=== PATIENT | male | born 1985 | race Caucasian/White ===

== ENCOUNTER 2016-07-06 11:27 | Emergency (ER) | payer SELFPAY ==
[~2016-07-06] VITALS: Ht 188 cm; Wt 86.4 kg
[2016-07-06 11:31] VITALS: BP 142/77; PULSE 90; RESP 20; TEMP 97.6; O2SAT 97
--- NOTE | 2016-07-06 12:13 | PD ---
HPI Chief Complaint: Cold / Flu Symptoms Time Seen by Provider: 12:12 Travel History International Travel<30 days: No Contact w/Intl Traveler<30days: No Traveled to known affect area: No History of Present Illness HPI 31-year-old male presents to the emergency department with complaint of cough, wheezing, shortness breath, chest tightness, nasal congestion, sputum production 1/2 weeks. History of asthma. He had pneumonia 7 times last year. Does not have an albuterol inhaler and has not been using anything to alleviate his symptoms. Reports shortness of breath and chest tightness. Denies chest pain. Denies hemoptysis. 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 Denies recent travel, hospitalization, surgery. Denies leg edema. Denies anticoagulants. Next fever, chills, nausea, vomiting. Denies sore throat, ear pain. Smokes 2 packs per day. Allergies to garlic, nickel, oily fish. No primary care provider. No other modifying factors or associated signs and symptoms. PFSH Past Medical History Asthma: Yes Social History Alcohol Use: No Tobacco Use: Yes (2ppd) Substance Use: Yes (marijuana) Allergies-Medications (Allergen,Severity, Reaction): Coded Allergies: Garlic (Verified Allergy, Unknown, 02/04/16) Oily Fish (Verified Allergy, Unknown, 02/04/16) Uncoded Allergies: NICKEL (Adverse Reaction, Intermediate, 02/04/16) Reported Meds & Prescriptions Reported Meds & Active Scripts Active Azithromycin 500 Mg Tab 500 Mg PO DAILY Deltasone (Prednisone) 20 Mg Tab 40 Mg PO DAILY 4 Days start 07/07/2016 Proair Hfa 8.5 GM Inh (Albuterol Sulfate) 90 Mcg/Act Aer 2 Puff INH Q4-6H PRN 108 mcg/actuation Review of Systems Except as stated in HPI: all other systems reviewed are Neg Physical Exam Narrative GENERAL: Well-nourished, well-developed male patient, in no acute distress SKIN: Warm and dry. HEAD: Atraumatic. Normocephalic. EYES: Pupils equal and round at 4 mm with brisk reaction. No scleral icterus. No injection or drainage. ENT: Mucosa pink and moist. No erythema or exudates. No uvular edema. No uvular , palatal, or tonsillar deviation. Airway patent. Nares without nasal blood, purulent drainage or septal hematoma. EARS: Bilateral pinnae and external canals appear within normal limits. Bilateral tympanic membranes without erythema, dullness or perforation. NECK: Trachea midline. No lymphadenopathy. CARDIOVASCULAR: Regular rate and rhythm. No murmur appreciated. RESPIRATORY: No accessory muscle use. Lungs decreased to bilateral bases to auscultation. Breath sounds equal bilaterally. No retractions or tachypnea. No Audible wheezing noted. GASTROINTESTINAL: Abdomen soft, non-tender, nondistended. Hepatic and splenic margins not palpable. Bowel sounds are active 4 quadrants. MUSCULOSKELETAL: No obvious deformities. No clubbing. No cyanosis. No edema. NEUROLOGICAL: Awake and alert. Oriented 3. No obvious cranial nerve deficits. Motor grossly within normal limits. Normal speech. Moves all extremities. 5/5 strength to all extremities. PSYCHIATRIC: Appropriate mood and affect; insight and judgment normal. Data Data Last Documented VS Vital Signs Date Time Temp Pulse Resp B/P Pulse Ox O2 Delivery O2 Flow Rate FiO2 07/06/16 13:00 70 16 138/64 98 Room Air 07/06/16 11:31 97.6 Orders Chest, Single Ap (07/06/16 12:13) Prednisone (Deltasone) (07/06/16 12:15) Albuterol-Ipratropium Neb (Duoneb Neb) (07/06/16 12:15) Albuterol-Ipratropium Neb (Duoneb Neb) (07/06/16 12:15) Albuterol-Ipratropium Neb (Duoneb Neb) (07/06/16 13:00) Ibuprofen (Motrin) (07/06/16 13:15) MDM Medical Decision Making Medical Screen Exam Complete: Yes Emergency Medical Condition: Yes Medical Record Reviewed: Yes Differential Diagnosis Viral illness, asthma exacerbation, pneumonia, less likely PE Narrative Course 31-year-old male physical exam consistent with a viral illness and mild asthma exacerbation. The patient is in no acute distress and oxygen saturation is 97% on room air. He is without retractions or tachypnea. Lung sounds are decreased in bilateral bases and without wheezing on auscultation. No audible wheezing. Patient is afebrile and nontoxic-appearing. He denies fever, chills , nausea, vomiting. Reports 2 pack per day cigarette use. He does report history of DVT secondary to surgery. His last DVT was reported in 2005. Using Wells criteria for pulmonary embolism the patient's scores 1.5 points, which is Low risk group: 1.3% chance of PE in an ED population. Another study assigned scores = 4 as PE Unlikely and had a 3% incidence of PE. I do not feel that further evaluation for PE is necessary at this time. Chest x-ray ordered. DuoNeb and prednisone is ordered. 1300: Patient reports some improvement in shortness of breath after DuoNeb 1. Lungs are clear and equal with improved breath sounds but still mildly decreased in bilateral bases. DuoNeb 2 ordered. 1325: Chest x-ray with no acute disease. 1339: Patient reports improvement in symptoms. He denies shortness of breath and chest tightness at this time. His lungs are clear and equal with improved breath sounds throughout. Pro Air inhaler, Deltasone prescribed for home. I will prescribe antibiotics secondary to length of illness. Azithromycin prescribed home. Patient verbalizes understanding and agreement with treatment plan. Patient is medically cleared and stable for discharge. Discussed reasons to return to the emergency department. Instructed patient to follow up with primary care provider. Patient agrees with treatment plan. The patients vital signs are stable and the patient is stable for outpatient follow-up and treatment. Patient discharged home, stable and in no acute distress. Diagnosis Primary Impression: Viral illness Additional Impression: Asthma exacerbation, mild Referrals: Primary Care Physician Patient Instructions: Asthma (ED), Cold Symptoms (ED), General Instructions, Safe Use of Cough and Cold Medicines (ED) Departure Forms: Tests/Procedures, Work Release Enter return to work date: Jul 07, 2016 Additional Instructions: Use Albuterol inhaler as prescribed Take oral steroids as prescribed and complete full course Use Tessalon Perles as prescribed to decrease coughing spasms [id number] decongestants or antihistamines as directed and as needed for symptom management Drink plenty of fluids to prevent dehydration Use hot air humidifier to decrease cough exacerbation Turn off ceiling fans and sleep with head of bed elevated Avoid triggers such as second hand smoke, dust, known allergens Follow-up with your primary care provider Return to the emergency department immediately with worsening of symptoms Med/Other Pt SpecificInfo: Prescription(s) given Scripts Azithromycin 500 Mg [id number] Mg PO DAILY #5 TAB Ref 0 Prov:Hortencia Mercer 07/06/16 Prednisone (Deltasone)20 Mg Tab40 Mg PO DAILY 4 Days Ref 0 start 07/07/2016 Prov:Hortencia Mercer 07/06/16 Albuterol 8.5 GM Inh (Proair Hfa 8.5 GM Inh)90 Mcg/Act Aer2 Puff INH Q4-6H PRN ( SOB/WHEEZING) #1 INHALER Ref 0 108 mcg/actuation Prov:Hortencia Mercer 07/06/16 Disposition: 01 DISCHARGE HOME Condition: Stable Hortencia Mercer Jul 06, 2016 12:13
[2016-07-06] MEDS ORDERED: predniSONE 20 MG TAB PO ONE (12:15)
[2016-07-06] MEDS ORDERED: RESP: ALBUTEROL 2.5 MG/IPRATROPIUM 0.5 MG NEB (SCH) INH ONE (12:15)
[2016-07-06] MEDS ORDERED: RESP: ALBUTEROL 2.5 MG/IPRATROPIUM 0.5 MG NEB (SCH) INH (12:15)
[2016-07-06 13:00] VITALS: BP 138/64; PULSE 70; RESP 16; O2SAT 98
--- NOTE | 2016-07-06 13:01 | RADRPT ---
EXAM DATE/TIME: 07/06/2016 12:38 [facility] COMPARISON: No previous studies available for comparison. INDICATIONS : History asthma, short of breath with wheezing. MEDICAL HISTORY : Asthma SURGICAL HISTORY : None. ENCOUNTER: Initial ACUITY: 1 day PAIN SCORE: 6/10 LOCATION: Bilateral chest FINDINGS: A single view of the chest demonstrates the lungs to be symmetrically aerated without evidence of mas s, infiltrate or effusion. The cardiomediastinal contours are unremarkable. Osseous structures are intact. CONCLUSION: No acute disease. Tato Sy MD on July 06, 2016 at 12:54 Board Certified Radiologist. This report was verified electronically.
[2016-07-06] MEDS: RESP: ALBUTEROL 2.5 MG/IPRATROPIUM 0.5 MG NEB (SCH) INH (13:08)
[2016-07-06] MEDS ORDERED: IBUPROFEN 800 MG TAB PO ONE (13:15)
[2016-07-06] MEDS ORDERED: AZIT500T2 PO (13:44)
[2016-07-06] MEDS ORDERED: ALBUAER3 INH (13:44)
[2016-07-06] MEDS ORDERED: PRED-503 PO (13:44)
== END 2016-07-06 14:04 | disposition home or self-care (01) ==
LOC: NEPE 11:27
DX: B34.9 Viral infection, unspecified (principal); J45.901 Unspecified asthma with (acute) exacerbation; R07.89 Other chest pain; R09.81 Nasal congestion; F17.200 Nicotine dependence, unspecified, uncomplicated; Z87.09 Personal history of other diseases of the respiratory system; Z87.01 Personal history of pneumonia (recurrent); Z86.718 Personal history of other venous thrombosis and embolism
CPT/HCPCS: 71010; 94640; 94664; 99284; J7512

== ENCOUNTER 2016-09-11 12:32 | Emergency (ER) | payer OTHER ==
[~2016-09-11] VITALS: Ht 188 cm; Wt 84.5 kg
[~2016-09-11 12:32] MED LIST: ALBUAER3 INH; AZIT500T2 PO; PRED-503 PO
[2016-09-11 12:45] VITALS: BP 119/69; PULSE 94; RESP 18; TEMP 99.2; O2SAT 96
--- NOTE | 2016-09-11 13:50 | PD ---
HPI Chief Complaint: Psychiatric Symptoms Time Seen by Provider: 13:46 Travel History International Travel<30 days: No Contact w/Intl Traveler<30days: No Traveled to known affect area: No History of Present Illness HPI 31-year-old male brought in under the [email or web address] act for suicidal ideation expressed on Facebook. Patient denies suicidal ideation at this time. Patient did have a recent breakup with his girlfriend per his roommate. Patient denies any medical complaints or chronic medical conditions. He is allergic to garlic, nickel, and oily fish. PFSH Past Medical History Asthma: Yes ?: Not Social History Alcohol Use: No Tobacco Use: Yes (2ppd) Substance Use: Yes (marijuana) Allergies-Medications (Allergen,Severity, Reaction): Coded Allergies: Garlic (Verified Allergy, Unknown, 09/11/16) Per pt. Oily Fish (Verified Allergy, Unknown, 09/11/16) Per pt. Uncoded Allergies: NICKEL (Adverse Reaction, Intermediate, 09/11/16) Per pt. Reported Meds & Prescriptions Reported Meds & Active Scripts Active No Active Prescriptions or Reported Medications Review of Systems Except as stated in HPI: all other systems reviewed are Neg General / Constitutional: No: Fever Eyes: No: Visual changes HENT: No: Headaches Cardiovascular: No: Chest Pain or Discomfort Respiratory: No: Shortness of Breath Gastrointestinal: No: Abdominal Pain Genitourinary: No: Dysuria Musculoskeletal: No: Pain Skin: No Rash Neurologic: No: Weakness Psychiatric: No: Depression Endocrine: No: Polydipsia Hematologic/Lymphatic: No: Easy Bruising Physical Exam Narrative GENERAL: Patient appears no acute distress. SKIN: Warm and dry. Normal color. Normal turgor. HEAD: Atraumatic. Normocephalic. EYES: Pupils equal and round. No scleral icterus. No injection or drainage. ENT: No nasal bleeding or discharge. Mucous membranes pink and moist. Pharynx is clear. Airway is patent. NECK: Trachea midline. Supple nontender. CARDIOVASCULAR: Regular rate and rhythm. No murmurs gallops or rubs. RESPIRATORY: No accessory muscle use. Clear to auscultation. Breath sounds equal bilaterally. GASTROINTESTINAL: Abdomen soft, non-tender, nondistended. Hepatic and splenic margins not palpable. MUSCULOSKELETAL: Extremities without clubbing, cyanosis, or edema. No obvious deformities. NEUROLOGICAL: Awake and alert. No obvious cranial nerve deficits. Motor grossly within normal limits. Five out of 5 muscle strength in the arms and legs. Normal speech. PSYCHIATRIC: Appropriate mood and affect; insight and judgment normal. Data Data Last Documented VS Vital Signs Date Time Temp Pulse Resp B/P Pulse Ox O2 Delivery O2 Flow Rate FiO2 09/11/16 12:45 99.2 94 18 119/69 96 Room Air MDM Medical Decision Making Medical Screen Exam Complete: Yes Emergency Medical Condition: Yes Differential Diagnosis Hui act. Suicidal ideation. Depression. Narrative Course Patient medically stable at time of exam. Psychiatric labs ordered per protocol. Patient is medically cleared For psychiatric evaluation. Diagnosis Primary Impression: Suicidal ideation Additional Impression: Medical clearance for psychiatric admission Scripts No Active Prescriptions or Reported Meds Condition: Stable Xiang Argueta Sep 11, 2016 13:50
[2016-09-11 14:11] LABS: AUTOMATED NEUTROPHIL # 3.1 TH/MM3 (1.8-7.7); BASOPHIL % 0.5 % (0.0-2.0); EOSINOPHIL # 0.2 TH/MM3 (0-0.4); EOSINOPHIL % 3.3 % (0.0-4.0); HEMO FLAGS DIFF FINAL; LYMPH % 30.8 % (9.0-44.0); LYMPHOCYTE # 1.7 TH/MM3 (1.0-4.8); MEAN CELL VOLUME 87.5 FL (80.0-100.0); MEAN CORPUSCULAR HEMOGLOBIN 29.4 PG (27.0-34.0); MEAN CORPUSCULAR HGB CONC 33.6 % (32.0-36.0); MONO % 10.6 % (0.0-8.0); NEUT % 54.8 % (16.0-70.0); PLATELET COUNT 228 TH/MM3 (150-450); RED BLOOD COUNT 4.68 MIL/MM3 (4.50-5.90); RED CELL DISTRIBUTION WIDTH 13.3 % (11.6-17.2); WHITE BLOOD COUNT 5.6 TH/MM3 (4.0-11.0)
[2016-09-11 14:19] LABS: AMPHETAMINE, URINE NEG (NEG); BARBITURATES, URINE NEG (NEG); COCAINE, URINE POS (NEG)
[2016-09-11 14:25] LABS: ALT (GPT) 18 U/L (12-78); ANION GAP 6 MEQ/L (5-15); AST (GOT) 18 U/L (15-37); BICARBONATE 28.9 MEQ/L (21.0-32.0); BLOOD UREA NITROGEN 11 MG/DL (7-18); CHLORIDE 106 MEQ/L (98-107); GLOMERULAR FILTRATION RATE 77 ML/MIN (>89); POTASSIUM 4.1 MEQ/L (3.5-5.1); SODIUM (NA) 141 MEQ/L (136-145)
[2016-09-11 14:27] LABS: ALKALINE PHOSPHATASE 33 U/L (45-117); TOTAL BILIRUBIN ADULT 1.1 MG/DL (0.2-1.0)
--- NOTE | 2016-09-11 18:44 | PD ---
History of Present Illness Chief Complaint: Psychiatric Symptoms Time Seen by Provider: 16:45 Travel History International Travel<30 Days: No Contact w/Intl Traveler<30days: No Known affected area: No Legal Status Legal Status: Hui Act Hui Act Signed By: Shea Diego Hui Act Comment: Signed by [facility] Officer Thais Rangel #[id number]. History of Present Illness: History of Present Illness HPI 31-year-old male with a reported history of anxiety disorder who is under the [employer] act initiated by [employer] for suicidal ideation. as per the report the patient made some statements on facebook that his mother read and she became concerned. She contacted the police who initiated the BA. As per the patient he posted a vague message stating that he was going away for some time and that he was sorry to disappoint his friends. He states that he made the statements yesterday and that he was picked up today and in that time interval he did not try to hurt himself in any way. The patient is monitored here in [facility] and he presented no behavioral concerns and no suicidality. Patient has no previous contact with [facility] psychiatric department. Current toxicology is positive for cocaine as well as cannabinoid. Staff have contacted his mother and she has no concerns if he were to be discharged and would like him to receive outpatient treatment. The patient is alert, oriented and has been interacting with staff as well as with other patient's appropriately. He denies feeling depressed and denies suicidal ideation. he states that he is concerned that his probation will be violated and that he will have to return to [facility] and that this prompted his message on social media. He denies suicidal or homicidal ideation, intent or plan and states " I have 3 children and would not do that to them". PFSH Past Medical History Asthma: Yes Patient Takes Glucophage: No Musculoskeletal: Yes Tetanus Vaccination: Unknown ?: Not Psychiatric History Psychiatric History Hx Psychiatric Treatment: Patient denies any current psychiatric tx hx. Stated that he has been treated in the past for Anxiety and Anger Issues. Per pt, he found out approx 14 yrs ago that he was adopted and that after his adoption his parents had a biological daughter who he was raised with and reports with whom he has a good relationship. History of Inpatient Treatment: No Social History Hx Alcohol Use: No Hx Tobacco Use: Yes (2PPD) Hx Substance Use: Yes (marijuana) Substance Use Type: Marijuana, Nicotine/Cigarettes, Cocaine Hx of Substance Use Treatment: No Allergies-Medications (Allergen,Severity, Reaction): Coded Allergies: Garlic (Verified Allergy, Unknown, 09/11/16) Per pt. Oily Fish (Verified Allergy, Unknown, 09/11/16) Per pt. Uncoded Allergies: NICKEL (Adverse Reaction, Intermediate, 09/11/16) Per pt. Reported Meds & Prescriptions Reported Meds & Active Scripts Active No Active Prescriptions or Reported Medications Review of Systems Except as stated in HPI: all other systems reviewed are Neg Psychiatric: COMPLAINS OF: Anxiety Exam Alert: Yes [place]: Person (ox4) Mood: Calm Affect: Appropriate Speech: Clear, Logical Eye Contact: Normal Memory Intact: Comment (no impairment) Delusions: No Suicidal: Ideation (denies any) Homicidal: Ideation (deneis any) Insight/Judgement Fair. Not impaired MDM Medical Decision Making Medical Record Reviewed: Yes Assessment/Plan 31 year old male with reported history of anxiety as well as hx of substance use disorder who presents under a BA for allegedly writing a message on social media that concerned his mother. The patient denies that he wrote he was going to harm himself but rather as a result of believing he was going to go to [facility] he wrote that he will be going away and that he was sorry to disappoint people. The patient denies any suicidal ideation, intent or plan. he is future oriented and is requesting referral for outpatient counseling services. At this time the patietn will be discharged and BA will be lifted. Orders Complete Blood Count With Diff (09/11/16 13:51) Comprehensive Metabolic Panel (09/11/16 13:51) Psych Screen (09/11/16 13:51) Drug Screen, Random Urine (09/11/16 13:51) Diet Regular Basic (09/11/16 Dinner) Results Vital Signs Date Time Temp Pulse Resp B/P Pulse Ox O2 Delivery O2 Flow Rate FiO2 09/11/16 12:45 99.2 94 18 119/69 96 Room Air Laboratory Tests Test 09/11/16 09/11/16 13:49 13:50 White Blood Count 5.6 Red Blood Count 4.68 Hemoglobin 13.8 Hematocrit 41.0 Mean Corpuscular Volume 87.5 Mean Corpuscular Hemoglobin 29.4 Mean Corpuscular Hemoglobin 33.6 Concent Red Cell Distribution Width 13.3 Platelet Count 228 Mean Platelet Volume 7.9 Neutrophils (%) (Auto) 54.8 Lymphocytes (%) (Auto) 30.8 Monocytes (%) (Auto) 10.6 Eosinophils (%) (Auto) 3.3 Basophils (%) (Auto) 0.5 Neutrophils # (Auto) 3.1 Lymphocytes # (Auto) 1.7 Monocytes # (Auto) 0.6 Eosinophils # (Auto) 0.2 Basophils # (Auto) 0.0 CBC Comment DIFF FINAL Differential Comment Sodium Level 141 Potassium Level 4.1 Chloride Level 106 Carbon Dioxide Level 28.9 Anion Gap 6 Blood Urea Nitrogen 11 Creatinine 1.13 Estimat Glomerular Filtration 77 Rate Random Glucose 86 Calcium Level 9.3 Total Bilirubin 1.1 Aspartate Amino Transf 18 (AST/SGOT) Alanine Aminotransferase 18 (ALT/SGPT) Alkaline Phosphatase 33 Total Protein 7.9 Albumin 4.6 Urine Opiates Screen NEG Urine Barbiturates Screen NEG Urine Amphetamines Screen NEG Urine Benzodiazepines Screen NEG Urine Cocaine Screen POS Urine Cannabinoids Screen POS Diagnosis Primary Impression: Adjustment disorder Additional Impression: Substance use disorder Ruled Out: Suicidal ideation Psychiatrically Cleared: Yes Departure Forms: Tests/Procedures Patient Instructions: General Instructions, Stress (ED), Cannabis Abuse (ED), Suicide Prevention for Adults (ED), Medical Clearance for Psychiatric Care (ED) Additional Instructions: Follow up with outpatient primary care provider. Follow up with outpatient [facility] Act [phone]. Counselor of Choice. Return to ER if symptoms worsen. Med/ Other Pt Specific Info: No Meds Exist/No RX given Prescriptions No Active Prescriptions or Reported Meds Disposition: 01 DISCHARGE HOME Condition: Stable Problem Qualifiers Primary Impression: Adjustment disorder Qualified Code: F43.22 - Adjustment disorder with anxious mood Odilia Malone [facility] Sep 11, 2016 18:44
== END 2016-09-11 18:41 | disposition home or self-care (01) ==
LOC: NEPJ 12:32
DX: R45.851 Suicidal ideations (principal); F17.210 Nicotine dependence, cigarettes, uncomplicated; F12.10 Cannabis abuse, uncomplicated
CPT/HCPCS: 80053; 80307; 85025; 99283